=== PATIENT | female | born 1965 | race Caucasian/White ===

== ENCOUNTER 2023-07-18 13:51 | Outpatient (CLI) | payer OTHER, SELFPAY ==
--- NOTE | ~2023-07-18 | XR_ITS ---
EXAMINATION: XR lumbar spine min 4V DATE: 07/18/2023 14:42 INDICATION: Lumbar spondylosis. Right-sided numbness. TECHNIQUE: 5 views of lumbar spine including standing views and flexion and extension views were obta ined. COMPARISON: None. FINDINGS: There is 11 degrees levoscoliosis of lumbar spine. There is 3 mm retrolisthesis of L2 on L3 . The spine is hypomobile with flexion and extension. Vertebral body heights are normal. There is mod erately decreased disc height at L2-L3. There is multilevel severe facet joint osteoarthritis. IMPRESSION: 1. Moderate lumbar spondylosis. 2. Lumbar levoscoliosis. Reviewed, dictated and finalized at location E.
--- NOTE | ~2023-07-18 | XR_ITS ---
XR cervical spine 4-5V DATE: 07/18/2023 14:42 INDICATION: Right sided numbness, radiating to the upper extremity TECHNIQUE: AP, open-mouth, lateral and flexion and extension lateral views COMPARISON: None FINDINGS: Normal cervical curvature is intact on lateral view. No fracture or dislocation or locked f acet or prevertebral soft tissue swelling is evident. Cervical interspaces appear relatively preserved. No instability is evident on flexion or extension. IMPRESSION: No significant abnormality Reviewed, dictated and finalized at location A. IMPRESSION: No significant abnormality
[2023-07-18 14:27] LABS: CRP < 0.5 mg/dL (<1.0); Rheumatoid Factor < 12.0 IU/ML (<12)
[2023-07-18 14:49] LABS: Erythrocyte Sedimentation Rate 21 mm/hr (0-20)
[2023-07-22 12:59] LABS: ANA Cascade Screen NEGATIVE (NEGATIVE)
== END 2023-07-18 13:52 | disposition home or self-care (01) ==
PROVIDERS: PCP Emergency Medicine; Visit Provider Neurological Surgery
DX: M47.816 Spondylosis without myelopathy or radiculopathy, lumbar region (principal); M47.812 Spondylosis without myelopathy or radiculopathy, cervical region; M41.86 Other forms of scoliosis, lumbar region
CPT/HCPCS: 36415; 72050; 72110; 85652; 86038; 86140; 86225; 86235; 86364; 86430

== ENCOUNTER 2023-08-07 12:35 | Outpatient (CLI) | payer OTHER, SELFPAY ==
--- NOTE | 2023-08-07 14:20 | NEURO_ITS ---
Impression: # Complains of pain all over in upper and lower extremities. # Normal motor and sensory Nerve Conduction Study. # Normal needle/EMG without neurogenic changes or myotonia. # Clinical correlation recommended. Nerve Conduction Studies Anti Sensory Summary Table Stim Site NR Peak (ms) P-T Amp (?V) Site1 Site2 Delta-P (ms) Dist (cm) Uday (m/s) Left Median Anti Sensory (2-3nd Digit) Wrist 2.8 52.7 Wrist 2-3nd Digit 2.8 14.0 50 Wrist 2.9 58.8 Wrist 2-3nd Digit 2.8 14.0 50 Right Median Anti Sensory (2-3nd Digit) Wrist 3.3 56.8 Wrist 2-3nd Digit 3.3 14.0 42 Wrist 3.1 47.3 Wrist 2-3nd Digit 3.3 14.0 42 Left Radial Anti Sensory (Base 1st Digit) Wrist 2.3 43.0 Wrist Base 1st Digit 2.3 0.0 Right Radial Anti Sensory (Base 1st Digit) Wrist 2.8 24.9 Wrist Base 1st Digit 2.8 0.0 Left Sup Fibular Anti Sensory (Ant Lat Mall) 14 cm 3.5 5.5 14 cm Ant Lat Mall 3.5 16.0 46 Right Sup Fibular Anti Sensory (Ant Lat Mall) 14 cm 3.5 3.5 14 cm Ant Lat Mall 3.5 16.0 46 Left Sural Anti Sensory (Lat Mall) Calf 3.8 6.7 Calf Lat Mall 3.8 16.0 42 Right Sural Anti Sensory (Lat Mall) Calf 3.7 3.8 Calf Lat Mall 3.7 16.0 43 Left Ulnar Anti Sensory (5th Digit) Wrist 2.6 62.7 Wrist 5th Digit 2.6 14.0 54 Right Ulnar Anti Sensory (5th Digit) Wrist 2.8 53.2 Wrist 5th Digit 2.8 14.0 50 Motor Summary Table Stim Site NR Onset (ms) O-P Amp (mV) Site1 Site2 Delta-0 (ms) Dist (cm) Uday (m/s) Left Median Motor (Abd Poll Brev) Wrist 2.5 6.0 Elbow Wrist 5.1 28.0 55 Elbow 7.6 5.5 Right Median Motor (Abd Poll Brev) Wrist 2.9 5.8 Elbow Wrist 5.1 28.0 55 Elbow 8.0 5.4 Left Peroneal Motor (Vastus Med) Ankle 4.2 3.0 Popit Ankle 7.7 39.0 51 Popit 11.9 2.0 Right Peroneal Motor (Vastus Med) Ankle 4.0 3.2 Popit Ankle 7.9 36.0 46 Popit 11.9 1.5 Left Tibial Motor (Abd Patel Brev) Ankle 4.2 7.4 Knee Ankle 8.2 40.0 49 Knee 12.4 5.0 Right Tibial Motor (Abd Patel Brev) Ankle 4.0 6.5 Knee Ankle 7.7 37.0 48 Knee 11.7 4.7 Left Ulnar Motor (Abd Dig Minimi) Wrist 2.3 5.8 A Elbow Wrist 4.8 28.0 58 A Elbow 7.1 4.8 Right Ulnar Motor (Abd Dig Minimi) Wrist 2.6 5.0 A Elbow Wrist 4.8 27.0 56 A Elbow 7.4 3.9 F Wave Studies NR F-Lat (ms) L-R F-Lat (ms) Left Median (Mrkrs) (Abd Poll Brev) 26.18 1.02 Right Median (Mrkrs) (Abd Poll Brev) 27.19 1.02 Left Peroneal (Mrkrs) (EDB) 52.03 1.56 Right Peroneal (Mrkrs) (EDB) 53.59 1.56 Left Tibial (Mrkrs) (Abd Hallucis) 52.42 1.09 Right Tibial (Mrkrs) (Abd Hallucis) 53.51 1.09 Left Ulnar (Mrkrs) (Abd Dig Min) 27.34 0.67 Right Ulnar (Mrkrs) (Abd Dig Min) 28.01 0.67 EMG Side Muscle Nerve Root Ins Act Fibs Amp Dur Recrt Comment Right 1stDorInt Ulnar C8-T1 Nml Nml Nml Nml Nml Right Ext Indicis Radial (Post Int) C7-8 Nml Nml Nml Nml Nml Right Ext Digitorum Radial (Post Int) C7-8 Nml Nml Nml Nml Nml Right BrachioRad Radial C5-6 Nml Nml Nml Nml Nml Right PronatorTeres Median C6-7 Nml Nml Nml Nml Nml Right Abd Poll Brev Median C8-T1 Nml Nml Nml Nml Nml Right ABD Dig Min Ulnar C8-T1 Nml Nml Nml Nml Nml Right AntTibialis Dp Br Fibul
== END 2023-08-07 12:36 | disposition home or self-care (01) ==
LOC: ANHNEURO 12:35
PROVIDERS: PCP Emergency Medicine; Visit Provider Neurological Surgery
DX: M47.812 Spondylosis without myelopathy or radiculopathy, cervical region (principal); M47.816 Spondylosis without myelopathy or radiculopathy, lumbar region; M79.604 Pain in right leg; M79.601 Pain in right arm
CPT/HCPCS: 95886; 95913